=== PATIENT | female | born 1995 | race Caucasian/White ===

== ENCOUNTER → 2024-05-02 | Outpatient (CLI) | payer OTHER ==
[2024-05-02 17:28] LABS: BASO # 0.02 K/mm3 (0.02-0.10); EOS % 1.6 % (1.0-5.0); HEMATOCRIT 40.8 % (37.0-47.0); HEMOGLOBIN 13.4 g/dL (12.5-16.0); MEAN CELL VOLUME 95 fl (78-100); MEAN CORPUSCULAR HEMOGLOBIN 31 pg (27-31); MEAN CORPUSCULAR HGB CONC 33 g/dL (33-37); MEAN PLATELET VOLUME 9.9 fl (7.4-10.4); NEU # 3.63 K/mm3 (1.40-6.50); PLATELET COUNT 289 K/mm3 (130-400); RED BLOOD COUNT 4.31 M/mm3 (4.10-5.30); WHITE BLOOD COUNT 6.4 K/mm3 (4.8-10.8)
[2024-05-02 18:20] LABS: ALBUMIN 4.6 g/dL (3.5-5.0)
[2024-05-02 18:21] LABS: CALCIUM 9.6 mg/dL (8.3-10.5)
[2024-05-02 18:22] LABS: TOTAL PROTEIN 7.4 g/dL (6.4-8.3)
[2024-05-02 18:24] LABS: TOTAL BILIRUBIN 0.5 mg/dL (0.2-1.2)
[2024-05-02 22:59] LABS: FOLLICLE STIMULATING HORMONE 8.9 mIU/mL (()); LUTENIZING HORMONE 5.2 mIU/mL (()); PROGESTERONE 0.7 ng/mL (())
== END ==
LOC: LAB 17:05
PROVIDERS: Nurse Practitioner
DX: Z00.00 Encounter for general adult medical examination without abnormal findings (principal); Z13.220 Encounter for screening for lipoid disorders; R63.5 Abnormal weight gain; E55.9 Vitamin D deficiency, unspecified

== ENCOUNTER → 2024-05-21 | Outpatient (CLI) | payer OTHER ==
[2024-05-21 23:12] LABS: T3 FREE 2.6 pg/mL (1.7-3.7)
[2024-05-21 23:27] LABS: FOLATE (FOLIC ACID) 15.9 ng/mL (2.0-20.0)
[2024-05-23 11:17] LABS: ANA SCREEN with REFLEX Indeterminate (Negative)
[2024-05-23 14:12] LABS: E. CHAFFEENSIS IGG AB Negative (())
[2024-05-24 09:42] LABS: LYME DISEASE EIA Negative (Negative)
[2024-05-25 05:38] LABS: BAKERS YEAST ALLERGEN COUNT <0.10 kU/L (Class 0); EGG WHITE ALLERGEN COUNT <0.10 kU/L (Class 0); MILK ALLERGEN COUNT <0.10 kU/L (Class 0); ORANGE ALLERGEN COUNT 1.45 kU/L (()); PEANUT ALLERGEN COUNT 2.54 kU/L (()); RICE ALLERGEN COUNT 2.59 kU/L (()); SOYBEAN ALLERGEN COUNT 1.63 kU/L (()); TOMATO ALLERGEN COUNT 2.14 kU/L (()); WHEAT ALLERGEN COUNT 1.92 kU/L (())
[2024-05-25 09:14] LABS: Q FEVER PHASE I IGG ANTIBODY Negative (Negative); Q FEVER PHASE I IGM ANTIBODY Negative (Negative)
== END ==
LOC: LAB 12:30
PROVIDERS: Nurse Practitioner
DX: R11.0 Nausea (principal); R53.83 Other fatigue

== ENCOUNTER → 2024-06-06 | Outpatient (CLI) | payer OTHER ==
[2024-06-06 16:38] LABS: BASO # 0.04 K/mm3 (0.02-0.10); EOS # 0.09 K/mm3 (0.04-0.40); EOS % 1.3 % (1.0-5.0); HEMATOCRIT 40.2 % (37.0-47.0); HEMOGLOBIN 13.1 g/dL (12.5-16.0); LYMPH# 2.35 K/mm3 (1.50-4.00); MEAN CELL VOLUME 94 fl (78-100); MEAN CORPUSCULAR HEMOGLOBIN 31 pg (27-31); MEAN CORPUSCULAR HGB CONC 33 g/dL (33-37); MEAN PLATELET VOLUME 10.1 fl (7.4-10.4); MONO # 0.46 K/mm3 (0.20-0.80); NEU # 3.96 K/mm3 (1.40-6.50); PLATELET COUNT 269 K/mm3 (130-400); RED BLOOD COUNT 4.28 M/mm3 (4.10-5.30); RED CELL DISTRIBUTION WIDTH 12.8 % (11.5-14.5); WHITE BLOOD COUNT 6.9 K/mm3 (4.8-10.8)
== END ==
LOC: LAB 16:27
PROVIDERS: Family Medicine
DX: E55.9 Vitamin D deficiency, unspecified (principal); R76.8 Other specified abnormal immunological findings in serum